=== PATIENT | male | born 1945 | race Caucasian/White ===

== ENCOUNTER 2018-04-26 08:12 | Emergency (ER) | payer MEDICARE, MEDICAID ==
[2018-04-26] MEDS ORDERED: Lidocaine 2% 20 ML MDV ONE (08:47)
[2018-04-26] MEDS ORDERED: Lidocaine 2% 20 ML MDV SUBCUT ONE (08:52)
[2018-04-26] MEDS ORDERED: Bacitracin/Neomycin/Polymyxin B Oint 0.9 GM U/D Packet TOP ONE (09:05)
--- NOTE | 2018-04-26 09:11 | EDM.PDOC ---
ED HPI GENERAL MEDICAL PROBLEM - General Chief Complaint: Laceration Stated Complaint: laceration to LEFT eyebrow Time Seen by Provider: 04/26/18 08:40 Source of Information: Reports: Patient History Limitations: Reports: No Limitations - History of Present Illness INITIAL COMMENTS - FREE TEXT/NARRATIVE: Patient was sitting in a chair when he slipped out of it and fell to the ground. He struck his forehead against the ground and lacerated his LEFT eyebrow. He is not anticoagulated, did not lose consciousness, denies neck or back pain, denies other injuries or complaints. Onset: Today Location: Reports: Face Quality: Reports: Sharp Left Face Pain Score (Numeric/FACES): 3 - Related Data Allergies Allergy/AdvReac Type Severity Reaction Status Date / Time tuberculin, purified protein Allergy Other Verified 04/26/18 08:12 deriva Home Meds: Home Meds Ca/D3/Mag#11/Zinc/C S S Representative/Koko/Bor [Caltrate 600+D Plus Tablet] 1 tab PO DAILY 04/26 [History] Cyanocobalamin (Vitamin B-12) [Vitamin B-12] 500 mg PO DAILY 04/26/18 [History] Furosemide [Lasix] 40 mg PO 1200 04/26/18 [History] Furosemide [Lasix] 80 mg PO DAILY 04/26/18 [History] Phenytoin Sodium Extended [Dilantin] 300 mg PO DAILY 04/26/18 [History] Phenytoin Sodium Extended [Dilantin] 400 mg PO BEDTIME 04/26/18 [History] Potassium Citrate [Potassium Citrate ER] 10 meq PO DAILY 04/26/18 [History] Pyridoxine HCl 50 mg PO DAILY 04/26/18 [History] Ziprasidone HCl [Geodon] 60 mg PO DAILY 04/26/18 [History] Ziprasidone HCl [Geodon] 80 mg PO BEDTIME 04/26/18 [History] hydrOXYzine HCl [hydrOXYzine] 12.5 mg PO BEDTIME 04/26/18 [History] Past Medical History HEENT History: Reports: Glaucoma, Impaired Vision Cardiovascular History: Reports: Heart Failure Respiratory History: Reports: COPD Gastrointestinal History: Reports: Chronic Constipation Neurological History: Reports: Frequent Repetitive Habits (TICS), Seizure Psychiatric History: Reports: Learning Disability, Psychosis, Schizophrenia, Other (See Below) Other Psychiatric History: CONVULSIONS Endocrine/Metabolic History: Reports: Obesity/BMI 30+ - Infectious Disease History Infectious Disease History: Reports: MRSA - Past Surgical History HEENT Surgical History: Reports: Eye Surgery, Tonsillectomy, Visual, Other (See Below) Other HEENT Surgeries/Procedures: ARTIFICIAL r) EYE, 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 Denies other HEENT concerns) Musculoskeletal: Denies: Neck Pain, Back Pain Skin: Reports: Other (reports laceration to LEFT eyebrow) Neurological: Denies: Confusion, Dizziness, Headache ED EXAM, SKIN/RASH Exam: See Below Exam Limited By: No Limitations General Appearance: Alert, WD/WN, No Apparent Distress Eye Exam: Bilateral Eye: Other (blind in both eyes) Nose: Normal Inspection Head: Other (3 cm laceration to LEFT eyebrow. Head otherwise without acute findings) Neck: Normal Inspection, Supple, Non-Tender, Full Range of Motion. No: Limited Range of Motion, Tender Lateral, Tender Midline Respiratory/Chest: No Respiratory Distress Cardiovascular: Normal Peripheral Pulses Peripheral Pulses: 2+: Radial (L), Radial (R) Extremities: Normal Inspection, Normal Range of Motion, Non-Tender Neurological: Alert, Oriented, Other (cognative impairment at baseline) Skin: Warm, Dry, Other (3 cm laceration to eyebrow) Location, Skin: Face ED SKIN PROCEDURES - Laceration/Wound Repair Left Face Lac/Wound length In cm: 3 Appearance: Superficial, Clean Distal NVT: No Tendon Injury Anesthetic Type: Local Local Anesthesia - Lidocaine (Xylocaine): 2% Plain Local Anesthetic Volume: 5cc Skin Prep: Chlorhexidine (Hibiciens), Sterile Drape Exploration/Debridement/Repair: Wound Explored Closed with: Sutures Suture Size: other (5-0) # of Sutures: 4 Suture Type: Nylon, Interrupted, Simple Course - Vital Signs Last Recorded V/S: Last Vital Signs Temp 37.1 C 04/26/18 08:17 Pulse 57 L 04/26/18 08:17 Resp 20 04/26/18 08:17 BP 144/53 H 04/26/18 08:17 Pulse Ox 96 04/26/18 08:17 - Orders/Labs/Meds Meds: Medications Discontinued Medications Generic Name Dose Route Start Last Admin Trade Name Kitty PRN Reason Stop Dose Admin Lidocaine HCl Confirm 04/26/18 08:47 04/26/18 08:53 Xylocaine 2% Administered 04/26/18 08:48 Not Given Dose 20 ml .ROUTE .STK-MED ONE Lidocaine HCl 10 ml 04/26/18 08:52 04/26/18 08:53 Xylocaine 2% SUBCUT 04/26/18 08:53 10 ml ONETIME ONE Administration Departure - Departure Time of Disposition: :06 Disposition: Home, Self-Care 01 Condition: Good Clinical Impression: Laceration - Discharge Information *PRESCRIPTION DRUG MONITORING PROGRAM REVIEWED*: Not Applicable *COPY OF PRESCRIPTION DRUG MONITORING REPORT IN PATIENT NEEL: Not Applicable Instructions: Stitches, [place], or Adhesive Wound Closure, [id number], Laceration Care, Adult, [id number] Referrals: Luis M Cunningham MD [Primary Care Provider] - Additional Instructions: Please return in 5 days to have your stitches removed - Problem List Review Problem List Initiated/Reviewed/Updated: Yes - Assessment/Plan Assessment:: Laceration Wound easily closed. See procedure note for further. Tetanus UTD per medical records. Advised patient to rest, hydrate, OTC pain control PRN symptoms, return 5 days for suture removal, standard wound care instructions, go to ED if change or worse. Patient reports understanding and agreement with plan. DC home stable in care of caregiver.
== END 2018-04-26 09:15 | disposition home or self-care (01) ==
LOC: CC.ED 08:12
DX: S01.112A Laceration without foreign body of left eyelid and periocular area, initial encounter (principal); I50.9 Heart failure, unspecified; J44.9 Chronic obstructive pulmonary disease, unspecified; Z87.891 Personal history of nicotine dependence; Z88.8 Allergy status to other drugs, medicaments and biological substances; W07.XXXA Fall from chair, initial encounter
CPT/HCPCS: 12013; 96372; 99282; 99283

== ENCOUNTER 2023-02-20 10:21 | Observation (INO) | payer MEDICARE, OTHER, MEDICAID ==
[2023-02-20 10:34] LABS: BASOPHILS ABSOLUTE AUTO 0.01 10^3/uL (0.00-0.50); BASOPHILS PERCENT AUTO 0.1 % (0-1); HEMATOCRIT 46.3 % (42.0-52.0); HEMOGLOBIN 15.6 g/dL (14.0-18.0); IMMATURE GRAN ABSOLUTE AUTO 0.03 10^3/uL (0.00-0.49); IMMATURE GRAN PERCENT AUTO 0.2 % (0.0-4.9); LYMPHOCYTES ABSOLUTE AUTO 0.43 10^3/uL (0.60-5.00); MEAN CORPUSCULAR HEMOGLOBIN 30.6 pg (27.0-32.0); MEAN CORPUSCULAR HGB CONC 33.7 g/dL (32.0-36.0); MONOCYTES ABSOLUTE AUTO 1.12 10^3/uL (0.00-1.50); MONOCYTES PERCENT AUTO 7.9 % (0-10); NEUTROPHILS ABSOLUTE AUTO 12.55 x10^3/uL (1.80-8.00); NEUTROPHILS PERCENT AUTO 88.8 % (41-71); PLATELET COUNT,PLT 287 10^3/uL (150-400); RED BLOOD CELL COUNT 5.09 x10^6/uL (4.50-6.00); WHITE BLOOD CELL COUNT,WBC 14.1 10^3/uL (4.0-11.0)
[2023-02-20 10:48] LABS: ALANINE AMINOTRANSFERASE,ALT 36 U/L (12-78); ALBUMIN 3.1 g/dL (3.4-5.0); ALKALINE PHOSPHATASE 163 U/L (46-116); ASPARTATE AMNIOTRANSFERASE,AST 35 U/L (15-37); BILIRUBIN TOTAL 0.7 mg/dL (0.0-1.0); BLOOD UREA NITROGEN,BUN 25 mg/dL (7-18); C-REACTIVE PROTEIN 9.87 mg/dL (<=0.30); CALCIUM 8.7 mg/dL (8.4-10.1); CARBON DIOXIDE,CO2 32 mmol/L (21-32); CHLORIDE,CL 96 mEq/L (98-106); CREATININE 1.4 mg/dL (0.7-1.3); GLUCOSE RANDOM 181 mg/dL (75-99); POTASSIUM,K 3.9 mEq/L (3.5-5.0); PROTEIN TOTAL,TP 8.7 g/dL (6.4-8.2); SODIUM,NA 136 mEq/L (136-145)
[2023-02-20 10:51] LABS: ESTIMATED GFR 51 mL/min (>=60)
[2023-02-20] MEDS ORDERED: Iopamidol 755 Mg/ML 100 ML Bottle IVPUSH ONE (12:43)
[2023-02-20 14:39] LABS: APPEARANCE,URINE CLEAR (CLEAR); BILIRUBIN,URINE NEGATIVE (NEGATIVE); COLOR,URINE YELLOW (YELLOW); GLUCOSE,URINE NEGATIVE (NEGATIVE); KETONES,URINE NEGATIVE (NEGATIVE); LEUKOCYTE ESTERASE,URINE NEGATIVE (NEGATIVE); NITRITE,URINE NEGATIVE (NEGATIVE); OCCULT BLOOD,URINE TRACE-INTACT (NEGATIVE); PROTEIN,URINE TRACE mg/dL (NEGATIVE); UROBILINOGEN,URINE 0.2 EU/dL (0.2-1.0)
[2023-02-20 14:46] LABS: BACTERIA,URINE OCCASIONAL /HPF (NOT SEEN); EPITHELIAL CELLS,URINE OCCASIONAL /HPF (NOT SEEN); WBC,URINE 0-5 /HPF (0-5)
[2023-02-20] MEDS ORDERED: Acetaminophen 325 MG Tab PO PRN (14:52)
[2023-02-20] MEDS ORDERED: Docusate Sodium 100 MG Cap PO PRN (14:52)
[2023-02-20] MEDS ORDERED: Ondansetron 4 MG/2 ML SDV IV PRN (14:52)
[2023-02-20] MEDS ORDERED: Ondansetron 4 MG Tab.DIS PO PRN (14:52)
[2023-02-20] MEDS ORDERED: Sodium Chloride 0.9% 1,000 ML IV STA (14:52)
[2023-02-20] MEDS ORDERED: Piperacillin/Tazobactam 3.375 GM in Sodium Chloride 0.9% 100 ML IV SCH (15:00)
[2023-02-20] MEDS: cefTRIAXone 1 GM Vial IVPUSH SCH (15:26)
[2023-02-20] MEDS: Polyethylene Glycol 3350 Powder 17 GM Packet PO SCH (18:29)
[2023-02-20] MEDS: Furosemide 80 MG Tab PO SCH (18:29)
[2023-02-20] MEDS ORDERED: Phenytoin 100 MG Cap.ER PO SCH (20:00)
[2023-02-20] MEDS ORDERED: hydrOXYzine HCl 25 MG Tab PO SCH (20:00)
[2023-02-20] MEDS: Apixaban 5 MG Tab PO SCH (20:35)
[2023-02-20] MEDS: Polyvinyl Alcohol 1.4% Ophth Soln 15 ML Bottle EYELF SCH (20:40)
[2023-02-21] MEDS: Polyethylene Glycol 3350 Powder 17 GM Packet PO SCH (07:36)
[2023-02-21] MEDS: Apixaban 5 MG Tab PO SCH (07:38)
[2023-02-21] MEDS: Furosemide 80 MG Tab PO SCH (07:38)
[2023-02-21] MEDS: Polyvinyl Alcohol 1.4% Ophth Soln 15 ML Bottle EYELF SCH (07:39)
[2023-02-21 07:40] LABS: BASOPHILS ABSOLUTE AUTO 0.01 10^3/uL (0.00-0.50); BASOPHILS PERCENT AUTO 0.1 % (0-1); HEMATOCRIT 41.8 % (42.0-52.0); HEMOGLOBIN 14.1 g/dL (14.0-18.0); IMMATURE GRAN ABSOLUTE AUTO 0.03 10^3/uL (0.00-0.49); IMMATURE GRAN PERCENT AUTO 0.2 % (0.0-4.9); LYMPHOCYTES ABSOLUTE AUTO 0.73 10^3/uL (0.60-5.00); LYMPHOCYTES PERCENT AUTO 4.8 % (24-44); MEAN CORPUSCULAR HEMOGLOBIN 30.9 pg (27.0-32.0); MEAN CORPUSCULAR HGB CONC 33.7 g/dL (32.0-36.0); MEAN CORPUSCULAR VOLUME 91.5 fL (83.0-97.0); MONOCYTES ABSOLUTE AUTO 1.57 10^3/uL (0.00-1.50); MONOCYTES PERCENT AUTO 10.2 % (0-10); NEUTROPHILS ABSOLUTE AUTO 12.98 x10^3/uL (1.80-8.00); NEUTROPHILS PERCENT AUTO 84.7 % (41-71); PLATELET COUNT,PLT 303 10^3/uL (150-400); RED BLOOD CELL COUNT 4.57 x10^6/uL (4.50-6.00); WHITE BLOOD CELL COUNT,WBC 15.3 10^3/uL (4.0-11.0)
[2023-02-21 07:55] LABS: CALCIUM 8.2 mg/dL (8.4-10.1); CREATININE 1.3 mg/dL (0.7-1.3); EST CRCL DRUG DOSING (CG) 41.58 mL/min; MAGNESIUM 1.9 mg/dL (1.8-2.4); POTASSIUM,K 4.1 mEq/L (3.5-5.0)
[2023-02-21] MEDS ORDERED: Phenytoin 100 MG Cap.ER PO SCH (08:00)
[2023-02-21] MEDS ORDERED: Vitamin B6-pyridOXINE 100 MG Tab PO SCH (08:00)
[2023-02-21] MEDS ORDERED: Calcium Carbonate/Vitamin D3 1250 MG-5 MCG Tab PO SCH (08:00)
[2023-02-21] MEDS ORDERED: Potassium Chloride 10 MEQ Tab.ER PO SCH (08:00)
[2023-02-21] MEDS ORDERED: Cyanocobalamin (Vitamin B12) 100 MCG Tab PO SCH (08:00)
[2023-02-21] MEDS ORDERED: risperiDONE 1 MG Tab PO SCH (08:00)
[2023-02-21] MEDS: cefTRIAXone 1 GM Vial IVPUSH SCH (12:44)
== END 2023-02-21 13:35 ==
LOC: CC.FCMC 10:21 → INTOOBSV 11:55 → CC.MS 11:55 → UNDOADMOB 11:55 → CC.MS 14:25
PROVIDERS: ADMIT Nurse Practitioner; ATTEND Nurse Practitioner
DX: R10.9 Unspecified abdominal pain (principal); R50.9 Fever, unspecified; D72.829 Elevated white blood cell count, unspecified; L03.115 Cellulitis of right lower limb; E66.9 Obesity, unspecified; D72.9 Disorder of white blood cells, unspecified; R16.2 Hepatomegaly with splenomegaly, not elsewhere classified; M45.5 Ankylosing spondylitis of thoracolumbar region; L03.116 Cellulitis of left lower limb; Z79.899 Other long term (current) drug therapy; Z88.8 Allergy status to other drugs, medicaments and biological substances; Z68.37 Body mass index [BMI] 37.0-37.9, adult
CPT/HCPCS: 36415; 51701; 71045; 74018; 74177; 80048; 80053; 81001; 83735; 85025; 86140; 96374; 96376; 99223; 99238; A9270-GY; G0378; J0696; J7030; Q9967